=== PATIENT | male | born 1965 | race Caucasian/White ===

== ENCOUNTER 2017-03-29 11:56 | Inpatient (IN) | payer OTHER ==
[~2017-03-29] VITALS: Ht 160 cm; Wt 83.0 kg
--- NOTE | 2017-03-29 11:56 | NUR ---
Patient BIBA ACLS, transferred to bed 4. RN evaluating patient at bedside.
[2017-03-29 12:00] VITALS: BP 152/89
--- NOTE | 2017-03-29 12:00 | NUR ---
PATIENT BIB EMS WITH C/O SYNCOPAL EPISODE AT [facility] HX; DM, HTN, RX; METFORMIN, ENALAPRIL, MOTROPOLOL, ATROVASTATIN, ASPIRIN, GABAPENTIN; DENIES N/V/D; SKIN IS PINK/WARM/DRY; AAOX4 WITH EVEN AND STEADY GAIT; LUNGS CLEAR BL; HR EVEN AND REGULAR; PT DENIES ANY FEVER, CP, SOB, OR COUGH AT THIS TIME; PATIENT STATES PAIN OF 0/10 AT THIS TIME; VSS; PATIENT POSITIONED FOR COMFORT; HOB ELEVATED; BEDRAILS UP X2; BED DOWN. ER MD MADE AWARE OF PT STATUS.
--- NOTE | 2017-03-29 12:12 | NUR ---
Dr. Scruggs evaluating patient at bedside.
--- NOTE | 2017-03-29 12:20 | NUR ---
Patient taken to CT scan via gurney by [employer].
[2017-03-29] MEDS ORDERED: NACL 0.9% 1,000 ML IV SCH (13:30)
[2017-03-29] MEDS ORDERED: ACETAMINOPHEN 325 MG TAB PO PRN (13:30)
[2017-03-29] MEDS ORDERED: LORazepam 2 MG/ML VIAL IVP PRN (13:30)
[2017-03-29] MEDS ORDERED: DEXTROSE 50% 50 ML SYR IVP PRN (13:30)
[2017-03-29] MEDS ORDERED: ONDANSETRON 4 MG/2 ML VIAL IVP PRN (13:30)
[2017-03-29] MEDS ORDERED: NACL 0.9% 1,000 ML IV ONE (14:05)
[2017-03-29] MEDS ORDERED: XARELTO20 MG PO (14:15)
[2017-03-29] MEDS ORDERED: AMLODIPINE BESYL5 MG PO (14:17)
[2017-03-29] MEDS ORDERED: METOPROLOL50 MG PO (14:18)
[2017-03-29] MEDS ORDERED: ZOFRAN4 M1 PO (14:22)
[2017-03-29] MEDS ORDERED: NEURONTIN300 MG PO (14:22)
[2017-03-29] MEDS ORDERED: VASOTEC10 MG PO (14:23)
[2017-03-29] MEDS ORDERED: ASPIRIN81 M1 PO (14:24)
[2017-03-29] MEDS ORDERED: LIPITOR80 MG PO (14:25)
[2017-03-29] MEDS ORDERED: HUMALOG100 UNITS/ SUBQ (14:27)
--- NOTE | 2017-03-29 14:54 | NUR ---
RUN BOAT OPERATOR AT BEDSIDE
--- NOTE | 2017-03-29 15:25 | NUR ---
Patient will be admitted to care of DR GONZALEZ. Admited to TELE. Will go to room 106A. Belongings list completed. Report to SCOTT STEVENSON.
--- NOTE | 2017-03-29 15:35 | NUR ---
REPORT RECEIVED FROM ER NURSE GERTRUDIS, PT BROUGHT IN [facility], PT AMBULATES FROM HALLWAY TO ROOM 106A WITH STEADY GAIT, PT MACEDONIAN SPEAKING, DAUGHTER AT BEDSIDE, PT AAOX4, RESP EVEN UNLABORED ON ROOM AIR, SKIN WARM DRY COLOR WNL, PT DENIES CHEST PAIN , DENIES NAUSEA OR VOMITING, PT DENIES SOB, SPEAKS CLEARLY, PT DENIES DIZZINESS OR LIGHT HEADEDNESS, MOVES ALL EXT WITHOUT PROBLEM, PIV TO RIGHT HAND 20G, NS STARTED AT 100ML/HR, IV SITE WNL, CLOTHING REMOVED, SKIN INSPECTED, SKIN INTACT, PLAN OF CARE REVIEWED, PT ORIENTED TO ROOM AND FLOOR, PT DENIES ANY IMMEDIATE NEEDS, CALL HEATH WITHIN REACH, SIDE RAILS UP, BED LOCKED IN LOW POSITION, WILL CONTINUE TO MONITOR
[2017-03-29] MEDS: BLOOD GLUCOSE MONITORING 1 DEV DEV FS SCH ×2 (16:30→21:00)
--- NOTE | 2017-03-29 17:35 | NUR ---
DR MATA AT BEDSIDE
--- NOTE | 2017-03-29 18:20 | NUR ---
INSULIN GIVEN PER SLIDING SCALE. TOLERATED WELL. PATIENT EATING DINNER. NO S/SX OF DISTRESS NOTED. PATIENT REMAINS ON FACER OPERATOR. FAMILY AT BEDSIDE. AUTHORIZATION FOR MEDICAL RECORDS RELEASE SIGNED BY PATIENT. FAXED TO [facility].
[2017-03-29] MEDS: INSULIN LISPRO SLIDING SCALE 100 UNITS/ML VIAL SUBQ PRN ×2 (18:32→22:50)
--- NOTE | 2017-03-29 19:40 | NUR ---
RECEIVED REPORT FROM DAY SHIFT NURSE AT BEDSIDE. PT IS AAOX4, ON ROOM AIR. PT HAS A 20 GAUGE IV ON THE RIGHT HAND, ASYMPTOMATIC, RUNNING NS @100ML/HR. PT IS STABLE, NO SIGNS OF DISTRESS NOTED. SKIN IS INTACT. DISCUSSED PLAN OF CARE WITH PT, PT VERBALIZED UNDERSTANDING. BED IN LOW POSITION, CALL LIGHT WITHIN REACH. WILL CONTINUE TO MONITOR.
--- NOTE | 2017-03-29 19:40 | NUR ---
REPORT GIVEN TO BLOOD BANK MANAGER NURSE ALEX PACK IN STABLE CONDITION.
[2017-03-29 20:00] VITALS: BP 138/83
--- NOTE | 2017-03-29 21:30 | NUR ---
PT REFUSED HEPARIN INJECTION. PT REQUESTED INVENTORY BE TAKEN OF HIS ITEMS AT BEDSIDE. WROTE IN PT CHART UNDER INVENTORY. BED IN LOW POSITION, CALL LIGHT WITHIN REACH. WILL CONTINUE TO MONITOR.
--- NOTE | 2017-03-29 23:45 | NUR ---
PT STABLE, NO SIGNS OF DISTRESS NOTED. EDUCATED PT ON FALL PRECAUTIONS, PT VERBALIZED UNDERSTANDING. BED IN LOW POSITION, CALL LIGHT WITHIN REACH. WILL CONTINUE TO MONITOR.
[2017-03-30] VITALS: BP 148/82
--- NOTE | 2017-03-30 00:45 | NUR ---
PT WANTED BLOOD GLUCOSE LEVEL CHECKED AGAIN. ON ARRIVAL TO PT ROOM, SAW PT SLEEPING, TRIED TO WAKE PT UP BUT PT DIDN'T WAKE. WILL CHECK BACK LATER. NO SIGNS OF DISTRESS NOTED. BED IN LOW POSITION, CALL LIGHT WITHIN REACH. WILL CONTINUE TO MONITOR. Addendum: 03/31/17 at 0350 by Peg Rascon RN DISREGARD
--- NOTE | 2017-03-30 02:05 | NUR ---
PT STABLE, NO SIGNS OF DISTRESS NOTED. ANSWERED PT'S QUESTIONS ABOUT HTN, WHEN HIS QUESTIONS WERE ANSWERED, PT VERBALIZED UNDERSTANDING. BED IN LOW POSITION, CALL LIGHT WITHIN REACH. WILL CONTINUE TO MONITOR
[2017-03-30 04:00] VITALS: BP 145/86
--- NOTE | 2017-03-30 04:25 | NUR ---
PT STABLE, NO SIGNS OF DISTRESS NOTED. PT VITAL SIGNS WERE WITHIN NORMAL LIMITS. BED IN LOW POSITION, CALL LIGHT WITHIN REACH. WILL CONTINUE TO MONITOR
[2017-03-30] MEDS: BLOOD GLUCOSE MONITORING 1 DEV DEV FS SCH ×4 (06:38→21:02)
[2017-03-30] MEDS: INSULIN LISPRO SLIDING SCALE 100 UNITS/ML VIAL SUBQ PRN ×2 (06:41→17:22)
--- NOTE | 2017-03-30 06:41 | NUR ---
2 UNITS OF INSULIN WERE GIVEN FOR BLOOD SUGAR OF 195. PT TOLERATED WELL. PT STABLE, NO SIGNS OF DISTRESS NOTED. BED IN LOW POSITION, CALL LIGHT WITHIN REACH. WILL CONTINUE TO MONITOR.
--- NOTE | 2017-03-30 07:20 | NUR ---
ENDORSED PT TO DAY SHIFT RN FOR CONTINUITY OF CARE. PT IN STABLE CONDITION.
--- NOTE | 2017-03-30 07:25 | NUR ---
RECEIVED PT IN BED. AWAKE. ALERT ORIENTEDX4. NO SOB NOTED. DENIES ANY PAIN OR DISCOMFORT AT THIS TIME. PT AMBULATORY. SAFETY PRECAUTION IN PLACE. CALL LIGHT WITHIN REACH.
[2017-03-30 08:00] VITALS: BP 144/87
--- NOTE | 2017-03-30 08:27 | NUR ---
HIEN CAME TO SEE PT. SAID LEXISCAN WILL BE DONE AT 1230 AND NEED TO KEEP PT NPO FOR [address] SULLIVAN TO LET HIM KNOW THAT PT DIABETIC IF PT CAN EAT SOMETHING. AND PAGED ELEVATOR PILOT FOR DR. GONZALEZ TO RECONCILE MEDS.
--- NOTE | 2017-03-30 08:29 | NUR ---
AWAITING CALL BACK FOR DR. GONZALEZ'S CHEMICAL PLANT TECHNICAL DIRECTOR AND DR. SULLIVAN.
[2017-03-30] MEDS: ASPIRIN 81 MG TAB.CHEW PO SCH (09:00)
--- NOTE | 2017-03-30 09:03 | NUR ---
DR.QADEER GONZALEZ CALLED BACK AND SAID HE WILL RECONCILE HIS MEDS WHEN HE DO HIS ROUNDS.
--- NOTE | 2017-03-30 09:11 | NUR ---
PATIENT HAS BEEN SCREENED AND CATEGORIZED MODERATE NUTRITION RISK. PATIENT WILL BE SEEN WITHIN 3-5 DAYS OF ADMISSION. 04/01/17-04/03/[address]
--- NOTE | 2017-03-30 10:59 | NUR ---
RUPERT FROM [facility] CAME TO INDUSTRIAL RELATIONS REPRESENTATIVE PT FOR LEXISCAN.
[2017-03-30 11:00] VITALS: BP 149/90
[2017-03-30] MEDS ORDERED: REGADENOSON 0.4 MG/5 ML SYR IV ONE (11:20)
[2017-03-30] MEDS ORDERED: ECOTRIN 81 MG TABEC PO SCH (12:39)
--- NOTE | 2017-03-30 13:00 | NUR ---
PT CAME BACK FROM [facility]. VERBALIZED HE WASN'T FEELING SO GOOD. CHECKED PT'S BS, 174MG/DL. PT VERBALIZED HE DOESN'T WANT TO EAT MUCH, JUST DRANK HIS APPLE JUICE. PT' FEELING NAUSEOUS, PROVIDED WITH VOMIT BAG, BUT NO VOMITING NOTED. VITALS TAKEN AND RECORDED.
--- NOTE | 2017-03-30 13:05 | NUR ---
HELD INSULIN SINCE PT DIDN'T EAT HIS LUNCH. JUST DRANK SOME WATER AND JUICE.
--- NOTE | 2017-03-30 13:07 | NUR ---
LEXISCAN STRESS TEST DONE
--- NOTE | 2017-03-30 13:41 | NUR ---
NUCLEAR MED RUPERT CAM,E BACK TO BINDING END STITCHER PT. PT ON STABLE CONDITION, NO VOMITING NOTED. VERBALIZED HE IS FEELING BETTER.
--- NOTE | 2017-03-30 14:28 | NUR ---
NUCLEAR MED STAFF RUPERT CAME AND BROUGHT PT BACK. PT AWAKE. NO SOB NOTED DENIES ANY PAIN OR DISCOMFORT AT THIS TIME.
[2017-03-30 16:00] VITALS: BP 143/90
--- NOTE | 2017-03-30 17:43 | NUR ---
DR. GONZALEZ CALLED BACK WITH OK TO CONTINUE HOME MEDS OF PT. ORDERS MADE AND CARRIED OUT.
--- NOTE | 2017-03-30 18:30 | NUR ---
RECEIVED A CALL FROM DR. BONILLA REGARDING RESULT OF EEG. ACCORDING TO DOCTOR IRENE, SHOULD LET DR. GONZALEZ KNOW OF RESULT. CALLED [facility] SPOKE WITH DR. SHAMAR DR. MS SQL DEVELOPER FOR DOCTOR GONZALEZ, MADE AWARE OF CONSULT WITH DR. BONILLA AND RESULT OF EEG. WITH ORDER MADE FOR KEPPRA 500MG IV BID IF OK WITH DR. BONILLA. CALLED DR. BONILLA AND MADE AWARE OF ORDER AND HE AGREED WITH IT. ORDER MADE AND CARRIED OUT.
--- NOTE | 2017-03-30 19:44 | NUR ---
PT KEPT CLEAN, DRY AND COMFORTABLE, NEEDS ATTENDED, ENDORSED TO NEXT SHIFT ON STABLE CONDITION FOR CONTINUITY OF CARE.
--- NOTE | 2017-03-30 19:45 | NUR ---
RECEIVED REPORT FROM DAY SHIFT NURSE AT BEDSIDE. PT IS AAOX4, ON ROOM AIR, YEMENI SPEAKING. PT HAS A 20 GAUGE IV ON THE RIGHT HAND, ASYMPTOMATIC, SALINE LOCKED. PT IS STABLE, NO SIGNS OF DISTRESS NOTED. SKIN IS INTACT. DISCUSSED PLAN OF CARE WITH PT, PT VERBALIZED UNDERSTANDING. BED IN LOW POSITION, CALL LIGHT WITHIN REACH. WILL CONTINUE TO MONITOR.
[2017-03-30 20:00] VITALS: BP 146/95
[2017-03-30] MEDS: GABAPENTIN 300 MG CAP PO SCH (20:43)
[2017-03-30] MEDS: ATORVASTATIN 80 MG TAB PO SCH (20:44)
[2017-03-30] MEDS: ENALAPRIL 10 MG TAB PO SCH (20:45)
[2017-03-30] MEDS: levETIRAcetam 500 MG in NACL 0.9% 100 ML IV SCH (21:03)
--- NOTE | 2017-03-30 21:05 | NUR ---
ADMINISTERED SCHEDULED MEDICATIONS. PT TOLERATED WELL. PT BLOOD GLUCOSE LEVEL IS 163 AND PT REFUSES INSULIN. PT STABLE. BED IN LOW POSITION, CALL LIGHT WITHIN REACH. WILL CONTINUE TO MONITOR.
--- NOTE | 2017-03-30 22:50 | NUR ---
PAGEBernadette GONZALEZ. Addendum: 03/30/17 at 2303 by Peg Rascon RN PAGEBernadette GONZALEZ BECAUSE ZACK FROM CASE MANAGEMENT CALLED AND SAID PT ADMITTING ORDERS NEEDED TO BE CHANGED FROM OBSERVATION TO INPATIENT.
--- NOTE | 2017-03-30 22:55 | NUR ---
SPOKE TO DR IBANEZ, WHO IS VANSTONE MACHINE OPERATOR FOR [facility], ABOUT CHANGING PT ADMITTING ORDERS FROM OBSERVATION TO INPATIENT BECAUSE PT HAS BEEN HERE MORE THAN 24HRS. SAID TO GO AHEAD AND PUT IN THE ORDER.
[2017-03-31] VITALS: BP 140/78
--- NOTE | 2017-03-31 00:45 | NUR ---
PT WANTED BLOOD GLUCOSE LEVEL CHECKED AGAIN. ON ARRIVAL TO PT ROOM, SAW PT SLEEPING, TRIED TO WAKE PT UP BUT PT DIDN'T WAKE. WILL CHECK BACK LATER. NO SIGNS OF DISTRESS NOTED. BED IN LOW POSITION, CALL LIGHT WITHIN REACH. WILL CONTINUE TO MONITOR.
--- NOTE | 2017-03-31 02:35 | NUR ---
PT SLEEPING, STABLE, NO SIGNS OF DISTRESS NOTED. BED IN LOW POSITION, CALL LIGHT WITHIN REACH. WILL CONTINUE TO MONITOR
--- NOTE | 2017-03-31 04:40 | NUR ---
PT STABLE, NO SIGNS OF DISTRESS NOTED. PT VITAL SIGNS WERE WITHIN NORMAL LIMITS. BED IN LOW POSITION, CALL LIGHT WITHIN REACH. WILL CONTINUE TO MONITOR
[2017-03-31 05:10] VITALS: BP 104/64
--- NOTE | 2017-03-31 06:55 | NUR ---
PT STABLE, NO SIGNS OF DISTRESS NOTED. BLOOD GLUCOSE WAS 148 NO INSULIN NEEDED. BED IN LOW POSITION, CALL LIGHT WITHIN REACH. WILL CONTINUE TO MONITOR
--- NOTE | 2017-03-31 07:35 | NUR ---
ENDORSED PT AT BEDSIDE TO DAY SHIFT SCOTT BALDERAS. PT IN STABLE CONDITION.
[2017-03-31 08:00] VITALS: BP 127/79
[2017-03-31] MEDS: BLOOD GLUCOSE MONITORING 1 DEV DEV FS SCH ×4 (08:17→22:06)
[2017-03-31] MEDS: GABAPENTIN 300 MG CAP PO SCH ×4 (08:25→21:59)
[2017-03-31] MEDS: METOPROLOL SUCCINATE 50 MG TABER PO SCH (08:25)
[2017-03-31] MEDS: amLODIPine 5 MG TAB PO SCH (08:25)
[2017-03-31] MEDS: ASPIRIN 81 MG TAB.CHEW PO SCH (08:25)
[2017-03-31] MEDS: ENALAPRIL 10 MG TAB PO SCH ×2 (08:26→22:00)
[2017-03-31] MEDS ORDERED: ASPIRIN 81 MG TAB.CHEW PO SCH (09:00)
[2017-03-31] MEDS ORDERED: INSULIN LISPRO 100 UNITS/ML VIAL SUBQ SCH (09:00)
[2017-03-31] MEDS: NACL 0.9% 1,000 ML IV SCH ×3 (09:10→23:55)
--- NOTE | 2017-03-31 09:20 | NUR ---
SPOKE WITH SECTION LABORER ZACK AND MADE AWARE OF PT TRANSFER PER DR. SULLIVAN. AUTOMATION AND CONTROLS SUPERVISOR TO ARRANGE TRANSPORTATION.
[2017-03-31] MEDS: levETIRAcetam 500 MG in NACL 0.9% 100 ML IV SCH ×2 (10:06→21:58)
--- NOTE | 2017-03-31 10:08 | NUR ---
AT BEDSIDE. AND DAUGHTER RIDDHI ON PHONE MADE AWARE OF PT TRANSFER. AND VERBALIZED UNDERSTANDING.
--- NOTE | 2017-03-31 10:12 | NUR ---
CM NOTE RECEIVED ORDER FOR TRANSFER TO [facility] J2EE SOFTWARE ENGINEER. SPOKE WITH CHELSIE UMANZOR OF [facility] PH# [phone], [facility] TRANSPORTATION AUTH# [id number], [facility] J2EE SOFTWARE ENGINEER AUTH# [id number]. SPOKE WITH LESA OF [facility] J2EE SOFTWARE ENGINEER AND SHE SAID PATIENT NEEDS TO BE THERE BETWEEN 12NOON AND 1400 TODAY. SPOKE WITH NERY OF [facility] PH [phone] TO SET UP PATIENT TRANSPORT ACLS OTHER SPORTS COACH OR INSTRUCTOR TIME 12NOON TODAY GOING TO [facility] J2EE SOFTWARE ENGINEER TO STOP BY [facility] ER FIRST. NUMBER TO CALL FOR NURSE TO NURSE REPORT PH [phone]. NURSE ANDREY AND CHARGE NURSE KENNEDY OSORIO.
[2017-03-31 12:00] VITALS: BP 128/82
--- NOTE | 2017-03-31 12:27 | NUR ---
1030 MET WITH PT, ALMA ALLISON HANDLEYS CHILLER HAND AT PT'S BEDSIDE. PT AND SPEAK SOME TAMAZIGHT. PER PT AND PT HAD A REFERRAL GENERATED BY [facility] FOR CARDIOLOGY APPT AT [facility]. STATED PT WAS AT [facility] LAST YEAR WHERE HE HAD AN ANGIOGRAM AND IT WAS DETERMINED THAT PT NEEDED BYPASS SURGERY. STATED HE WAS AGAIN RECENTLY IN [facility] AND THAT HE STILL HAD NOT HEARD ABOUT THE FOLLOW UP APPT WITH [facility]. PT STATED THAT HE DOES NOT WANT HEART SURGERY AT [facility] HE HAS BEEN THERE BEFORE AND WOULD PREFER [facility]. EXPLAINED TO PT THAT DR SULLIVAN THE PRINCIPAL TECHNICAL ARCHITECT HAS DETERMINED PT NEEDS TO GO TO [facility] FOR CARDIAC CATH AND IF PT REQUIRES BYPASS SURGERY IT CAN BE DONE THERE. THEY AGAIN STATED THEY DO NOT WANT SURGERY AT [facility]. DURING VISIT NOÉ MARTINEZ CM FROM [facility] ARRIVED AND VERIFIED THAT A REFERRAL FOR FOLLOW UP APPT AT [facility] HAD BEEN DONE 02/18/17 AND PROVIDED A COPY OF THE REFERRAL. NOÉ SPOKE WITH PT AND IN FRENCH. PER NOÉ SHE PROVIDED PT AND WITH THE OPTION OF GOING TO [facility] WHERE SURGERY CAN BE ARRANGED OR INFORMATION CAN BE SENT TO [facility] BUT BED AVAILABILITY IS NOT GUARANTEED. PT AND TO DISCUSS WITH THEIR DAUGHTER. 1143 SPOKE WITH NOÉ AND SHE REQUESTED THAT PER DR GONZALEZ CONTACT [facility] TRANSFER [facility] AND PROVIDED AUTH#[id number]. INFORMATION FAXED TO TRANSFER UNIT [phone] PHONE [phone] RECEIVED CALL FROM HENRIK AT TRANSFER UNIT AND SHE REQUESTED DR GONZALEZ'S PHONE NUMBER AND THE NUMBER OF THE NURSING UNIT THAT THE PT IS ON. SPOKE SEVERAL TIMES WITH DR SULLIVAN AND UPDATED HIM ON PT/'S DECISION TO GO TO [facility] AND THAT [facility] HAS BEEN CHANGED TO A WILL CALL. INFORMED LESA AT [facility] MILK VENDOR THAT PROCED[facility] MOST LIKELY WOULD NOT TAKE PLACE TODAY. PROVIDED UPDATE TO ANDREY JOHNSON'S ASSIGNED NURSE.
--- NOTE | 2017-03-31 13:28 | NUR ---
CM NOTE INITIAL REVIEW FAXED TO [facility] [phone] CM NOÉ [phone]
--- NOTE | 2017-03-31 14:47 | NUR ---
DR. SULLIVAN CALLED MADE AWARE THAT STILL WAITING FOR TRANSFER TO [facility]. ORDER FOR DIET MADE AND CARRIED OUT.
--- NOTE | 2017-03-31 15:09 | NUR ---
CAME TO ME SAYING THAT HER DAUGHTER ALREADY MADE ARRANGEMENTS WITH [facility], AND THE PHYSICIAN AT [facility] ALREADY KNOWS THAT THEY'RE COMING, AND THEY ARE READY TO LEAVE. SPOKE WITH ZACK, PAPER FEEDER, AND MADE AWARE OF SITUATION, PER ZACK, PT DOES NOT HAVE A BED YET AT [facility], AND THERE IS NO DISCHARGE ORDER YET. WILL CALL DR. GONZALEZ, TO MADE AWARE.
[2017-03-31 16:00] VITALS: BP 123/85
[2017-03-31] MEDS ORDERED: RIVAROXABAN 10 MG TAB PO SCH (17:00)
--- NOTE | 2017-03-31 17:05 | NUR ---
DAUGHTER RIDDHI CAME TO SEE PT. PER DAUGHTER, SHE CALLED [facility] AND SPOKE WITH THE INTER FACILITY TRANSFER, AND ACCORDING TO HER SHE IS STILL WAITING FOR THEM TO CALL HER BACK REGARDING THE ROOM. SO PT IS NOT GOING TO [facility] TODAY OPPOSED TO PREVIOUSLY REPORTED BY MOTHER ALMA THAT THEY ARE READY TO GO.
--- NOTE | 2017-03-31 17:22 | NUR ---
DUE XARELTO HELD DUE TO PT. MIGHT GO FOR SURGERY TOMORROW. STILL WAITING FOR PLACEMENT AT [place]. DR. GONZALEZ CALLED AND MADE AWARE.
[2017-03-31] MEDS: INSULIN LISPRO SLIDING SCALE 100 UNITS/ML VIAL SUBQ PRN ×2 (17:46→22:16)
--- NOTE | 2017-03-31 18:50 | NUR ---
WILL ENDORSE TO FOLLOW UP WITH [facility] [employer] DESIGN ARCHITECT TOMORROW WITH TRANSFER TO [place].
--- NOTE | 2017-03-31 18:54 | NUR ---
PT KEPT CLEAN, DRY AND COMFORTABLE, NEEDS ATTENDED, WILL ENDORSE TO NEXT SHIFT ON STABLE CONDITION, FOR CONTINUITY OF CARE.
--- NOTE | 2017-03-31 19:06 | NUR ---
SPENCER SWAIN, TRANSFER NURSE FROM [place] CALLED, PER SAMPLER TESTER ZACK. HE SAID THE MED XARELTO SHOULD NOT BE GIVEN FOR 4-5 DAYS FOR THE SURGERY. AND NO DATE YET FOR TRANSFER BUT PROBABLY IN THE NEXT 4-5 DAYS. WILL ENDORSE TO NEXT SHIFT.
--- NOTE | 2017-03-31 19:30 | NUR ---
RECEIVED REPORT FROM AM NURSE. PT FAMILY AT BEDSIDE. PT RESTING IN BED, AOX4, ABLE TO VERBALIZE NEEDS. PIN PULLER IN PLACE. PT DENIES CHEST PAIN, SOB OR S/S OF ACUTE DISTRESS. DENIES N/V. IV ACCESS ASYMPTOMATIC, PATENT AND INTACT. IVF INFUSING WELL. DISCUSSED AND REVIEWED PLAN OF CARE WITH PT. PT VERBALIZED UNDERSTANDING. ALL NEEDS MET. SAFETY MEASURES ENSURED. CALL LIGHT WITHIN REACH. WILL CONTINUE TO MONITOR.
[2017-03-31 20:00] VITALS: BP 127/77
--- NOTE | 2017-03-31 20:53 | NUR ---
1909 SPOKE WITH SPENCER SWAIN AT [facility]SFER [facility]. SPENCER STATED THAT PT'S CASE IS BEING REVIEWED AND THAT ADDITIONAL INFORMATION NEEDED IS THE CD OF PTS CARDIAC CATH AND CARDIOLOGY NOTES FROM PTS VISIT AT [facility] OF JANUARY 2016. ALSO REQUESTS CD OF PTS ECHO CARDIOGRAM DONE AT [facility] THIS VISIT AT TIME OF TRANSFER. ALSO REQUESTS RECENT A1C HGB, AND INDICATED THAT PT NEEDS TO BE OFF MEDICATION ZARALTO AT LEAST 4-5 DAYS PRIOR TO TRANSFER. STATED THAT ALL RECORDS FAXED TO TRANSFER CENTER PREVIOUSLY FROM CM AT [facility] HAD BEEN RECEIVED AND THAT IF FURTHER RECORDS REQUIRED WOULD CALL TO REQUEST. DR GONZALEZ INFORMED OF COMMUNICATION FROM SPENCER AT [facility] TRANSFER [facility] AND THAT CM WOULD FOLLOW UP IN TOMORROW WITH [facility] AND NOÉ MARTINEZ CM AT [facility] TO ASSIST WITH FACILITATING OBTAINING RECORDS REQUESTED. SPOKE WITH KENNEDY CHARGE NURSE AND PROVIDED UPDATE ON PROGRESSION OF TRANSFER ARRANGEMENTS. DR SULLIVAN ALSO INFORMED OF STATUS OF TRANSFER. [facility] PHONE [phone] OPTION #3.
--- NOTE | 2017-03-31 21:08 | NUR ---
ENTRY FOR 1330 CALL PLACED TO [facility] TO CANCEL SCHEDULED TRANSPORT TO [facility]. CALL PLACED TO [facility] CHARTER REPRESENTATIVE AND SPOKE WITH LESA AND INFORMED HER THAT PT AND FAMILY HAVE OPTED NOT TO TRANSFER TO [facility] CHARTER REPRESENTATIVE AND HAVE DECIDED TO PURSUE ADMISSION TO [facility].
[2017-03-31] MEDS: ATORVASTATIN 80 MG TAB PO SCH (22:00)
--- NOTE | 2017-03-31 22:20 | NUR ---
INSULIN COVERAGE ADMINISTERED WITH EDUCATION AND EVENING SNACK. ADMINISTERED DUE MEDS WITH EDUCATION. PT VERBALIZED UNDERSTANDING TOLERATED MEDS WELL. IVPB INFUSING WELL. ALL NEEDS MET. SAFETY MEASURES ENSURED. CALL LIGHT WITHIN REACH. WILL CONTINUE TO MONITOR. Addendum: 03/31/17 at 2320 by Marshall Narvaez RN HELD DUE MED HEPARIN DUE TO INSTRUCTIONS TO HOLD ANTIPLATELET INCLUDING XARELTO AT LEAST 4-5 DAYS BEFORE TRANSFER
--- NOTE | 2017-03-31 23:55 | NUR ---
PT RESTING COMFORTABLY IN BED, VS STABLE, PT DENIES CHEST PAIN, SOB OR S/S OF ACUTE DISTRESS. IVF INFUSING WELL. ALL NEEDS MET. SAFETY MEASURES ENSURED. CALL LIGHT WITHIN REACH. WILL CONTINUE TO MONITOR.
[2017-04-01] VITALS: BP 124/76
--- NOTE | 2017-04-01 02:01 | NUR ---
PT SLEEPING COMFORTABLY. NO S/S OF ACUTE DISTRESS. IVF INFUSING WELL. ALL NEEDS MET. SAFETY MEASURES ENSURED. CALL LIGHT WITHIN REACH. WILL CONTINUE TO MONITOR.
--- NOTE | 2017-04-01 03:51 | NUR ---
PT SLEEPING COMFORTABLY, AROUSABLE. NO S/S OF ACUTE DISTRESS. IVF INFUSING WELL. ALL NEEDS MET. SAFETY MEASURES ENSURED. CALL LIGHT WITHIN REACH. WILL CONTINUE TO MONITOR.
[2017-04-01 04:00] VITALS: BP 119/73
[2017-04-01] MEDS: BLOOD GLUCOSE MONITORING 1 DEV DEV FS SCH ×4 (06:16→20:27)
[2017-04-01] MEDS: INSULIN LISPRO SLIDING SCALE 100 UNITS/ML VIAL SUBQ PRN ×4 (06:19→20:26)
--- NOTE | 2017-04-01 07:10 | NUR ---
RECEIVED PATIENT REPORT AT BEDSIDE. PATIENT AWAKE, ALERT AND ORIENTED. NO S/S OF DISTRESS NOTED. DENIES PAIN. PATIENT ON ROOM AIR. IV LINE TO THE RIGHT HAND INTACT WITH IVF INFUSING WELL. PATIENT ON TELE MONITORING. BED LOWERED WITH CALL LIGHT WITHIN REACH. WILL CONTINUE TO MONITOR
--- NOTE | 2017-04-01 07:15 | NUR ---
ENDORSED PLAN OF CARE TO AM NURSE. CONDITION STABLE.
[2017-04-01 08:00] VITALS: BP 135/90
--- NOTE | 2017-04-01 08:30 | NUR ---
PER WANDY NÚÑEZ TO ADMINISTER HEPARIN
[2017-04-01] MEDS: ENALAPRIL 10 MG TAB PO SCH ×2 (09:27→20:21)
[2017-04-01] MEDS: METOPROLOL SUCCINATE 50 MG TABER PO SCH (09:27)
[2017-04-01] MEDS: GABAPENTIN 300 MG CAP PO SCH ×4 (09:27→20:21)
[2017-04-01] MEDS: ASPIRIN 81 MG TAB.CHEW PO SCH (09:28)
[2017-04-01] MEDS: levETIRAcetam 500 MG in NACL 0.9% 100 ML IV SCH ×2 (09:28→20:21)
[2017-04-01] MEDS: amLODIPine 5 MG TAB PO SCH (09:28)
--- NOTE | 2017-04-01 10:41 | NUR ---
CM NOTE CONCURRENT REVIEW FAXED TO [facility] [phone] CM NOÉ [phone]
[2017-04-01] MEDS: NACL 0.9% 1,000 ML IV SCH (11:50)
[2017-04-01 12:00] VITALS: BP 129/85
--- NOTE | 2017-04-01 13:45 | NUR ---
CM NOTE CALLED [facility] TRANSFER UNIT TO FOLLOW UP, PH# [phone] [facility], AND SPOKE WITH GILMER AND AMARI WHO SAID THEY'RE STILL TRYING TO GET A HOLD OF THE PATIENT'S PHYSICIAN THERE.
--- NOTE | 2017-04-01 15:17 | NUR ---
PATIENT WALKING AROUND THE UNIT. NO S/S OF DISTRESS NOTED
[2017-04-01 16:00] VITALS: BP 129/80
--- NOTE | 2017-04-01 19:24 | NUR ---
PATIENT REPORT GIVEN AT BEDSIDE. PATIENT ENDORSED IN STABLE CONDITION
--- NOTE | 2017-04-01 19:30 | NUR ---
RECEIVED REPORT FROM AM NURSE. PT FAMILY AT BEDSIDE. PT RESTING IN BED, AOX4, ABLE TO VERBALIZE NEEDS. PAINTLESS DENT REPAIR TECHNICIAN IN PLACE. PT DENIES CHEST PAIN, SOB OR S/S OF ACUTE DISTRESS. DENIES N/V. IV ACCESS ASYMPTOMATIC, PATENT AND INTACT. IVF INFUSING WELL. DISCUSSED AND REVIEWED PLAN OF CARE WITH PT. PT VERBALIZED UNDERSTANDING. ALL NEEDS MET. SAFETY MEASURES ENSURED. CALL LIGHT WITHIN REACH. WILL CONTINUE TO MONITOR.
[2017-04-01 20:00] VITALS: BP 140/79
[2017-04-01] MEDS: ATORVASTATIN 80 MG TAB PO SCH (20:21)
--- NOTE | 2017-04-01 20:27 | NUR ---
ADMINISTERED INSULIN COVERAGE WITH EDUCATION AND EVENING SNACKS. ADMINISTERED DUE MEDS WITH EDUCATION. PT VERBALIZED UNDERSTANDING, TOLERATED MEDS WELL. ALL NEEDS MET. IVPB INFUSING WELL. SAFETY MEASURES ENSURED. CALL LIGHT WITHIN REACH. WILL CONTINUE TO MONITOR.
[2017-04-01] MEDS ORDERED: DOCUSATE SODIUM 100 MG GELCAP PO PRN (20:30)
--- NOTE | 2017-04-01 20:31 | NUR ---
MADE DR PINEDA AWARE OF PT'S C/O CONSTIPATION. ORDERS RECEIVED FOR COLACE 100MG PO PRN. ORDERS PENDING, WILL CARRY OUT.
--- NOTE | 2017-04-01 21:02 | NUR ---
PT C/O CONSTIPATION. ADMINISTERED COLACE PO PRN ORDERED. PT VERBALIZED UNDERSTANDING, TOLERATED MED WELL.
[2017-04-02] VITALS: BP 121/88
--- NOTE | 2017-04-02 00:01 | NUR ---
PT RESTING IN BED COMFORTABLY. PT DENIES CHEST PAIN, SOB OR S/S OF ACUTE DISTRESS. ALL NEEDS MET. IVF INFUSING WELL. SAFETY MEASURES ENSURED. CALL LIGHT WITHIN REACH. WILL CONTINUE TO MONITOR.
[2017-04-02] MEDS: NACL 0.9% 1,000 ML IV SCH (01:10)
--- NOTE | 2017-04-02 02:03 | NUR ---
PT SLEEPING COMFORTABLY. NO S/S OF ACUTE DISTRESS. ALL NEEDS MET. IVF INFUSING WELL. SAFETY MEASURES ENSURED. CALL LIGHT WITHIN REACH. WILL CONTINUE TO MONITOR.
[2017-04-02 04:00] VITALS: BP 118/70
--- NOTE | 2017-04-02 04:15 | NUR ---
PT SLEEPING COMFORTABLY. NO S/S OF ACUTE DISTRESS. ALL NEEDS MET. IVF INFUSING WELL. SAFETY MEASURES ENSURED. CALL LIGHT WITHIN REACH. WILL CONTINUE TO MONITOR.
[2017-04-02] MEDS: BLOOD GLUCOSE MONITORING 1 DEV DEV FS SCH ×2 (06:08→12:02)
[2017-04-02] MEDS: INSULIN LISPRO SLIDING SCALE 100 UNITS/ML VIAL SUBQ PRN ×2 (06:09→12:03)
--- NOTE | 2017-04-02 07:15 | NUR ---
ENDORSED PLAN OF CARE TO AM NURSE. CONDITION STABLE.
--- NOTE | 2017-04-02 07:49 | NUR ---
RECEIVED REPORT FROM RIO CHAVEZ FOR CONTINUITY OF CARE. PATIET AWAKE A/O X4 NO S/S OF RESP DISTRESS NOTED NO COMPLAIN OF PAIN ABLE TO MAKE NEEDS KNOWN. IV SITE RT HAND GAUGE 20 INTACT AND PATENT. IVF INFUSING WELL. PLAN OF CARE DISCUSSED WITH THE PATIENT VITALS STABLE WILL CONTINUE TO MONITOR.
[2017-04-02 08:00] VITALS: BP 131/75
[2017-04-02] MEDS: levETIRAcetam 500 MG in NACL 0.9% 100 ML IV SCH (08:59)
[2017-04-02] MEDS: METOPROLOL SUCCINATE 50 MG TABER PO SCH (09:00)
[2017-04-02] MEDS: GABAPENTIN 300 MG CAP PO SCH (09:00)
[2017-04-02] MEDS: ASPIRIN 81 MG TAB.CHEW PO SCH (09:00)
[2017-04-02] MEDS: amLODIPine 5 MG TAB PO SCH (09:00)
[2017-04-02] MEDS: ENALAPRIL 10 MG TAB PO SCH (09:01)
--- NOTE | 2017-04-02 09:09 | NUR ---
DR GONZALEZ VISITED PATIENT, NO NEW ORDER. DUE MEDS GIVEN TOLERATED WELL ,ATE BREAKFAST GOOD APPETITE. SELF MORNING CARE DONE.
[2017-04-02 12:00] VITALS: BP 140/68
--- NOTE | 2017-04-02 12:08 | NUR ---
CM NOTE SPOKE WITH JACINTO OF [facility] PH [phone] [facility] 3 WHO SAID THAT THEIR SURGERY LAND LEVELER TODAY WILL NOT ACCEPT THE PATIENT UNLESS PATIENT COMES WITH A RECENT ANGIOGRAM AND ECHO AND PATIENT HAS TO BE OFF XARELTO X 5 DAYS. [facility] CHELSIE UMANZOR PH# [phone] AND CHELSIE DIXON AWARE.
--- NOTE | 2017-04-02 13:05 | NUR ---
PATIENT REQUESTED TO GO HOME WANTED TO SIGN AMA , EXPLAINED THE HIGH RISK OF LEAVING AGAINST MEDICAL ADVICE ON HIS CONDITION , OFFERED HIM WE CAN TRANSFER TO [facility] WITH ACCEPTING AND DEGREASING SOLUTION MIXER DR SULLIVAN BUT PATIENT REFUSED TO GO TO [facility] AND SIGNED AMA PAPER . PATIENT'S DAUGHTER AND AT THE BED SIDE VERBALIZED UNDERSTANDING AND STATED THEY WILL GO STRAIGHT TO [facility]
--- NOTE | 2017-04-02 13:24 | NUR ---
PATIENT LEFT AMA ACCOMPANY WITH FAMILY MEMBER , STABLE CONDITION
--- NOTE | 2017-04-02 14:21 | NUR ---
CM NOTE CONCURRENT REVIEW FAXED TO [facility] [phone] CM NOÉ [phone]
== END 2017-04-02 13:26 | disposition left against medical advice (07) | DRG 204 ==
LOC: MED 11:56 → MTU 13:36 → OBSVTOIN 03-30 22:55
PROVIDERS: ADMIT Hospitalist; ATTEND Hospitalist
DX: R55 Syncope and collapse (principal); N17.9 Acute kidney failure, unspecified; I42.9 Cardiomyopathy, unspecified; E10.65 Type 1 diabetes mellitus with hyperglycemia; I10 Essential (primary) hypertension; I25.10 Atherosclerotic heart disease of native coronary artery without angina pectoris; E78.5 Hyperlipidemia, unspecified; I48.91 Unspecified atrial fibrillation; Z53.21 Procedure and treatment not carried out due to patient leaving prior to being seen by health care provider; Z98.49 Cataract extraction status, unspecified eye
CPT/HCPCS: 99218; 99285; G0378